=== PATIENT | male | born 1950 | race Caucasian/White ===

== ENCOUNTER 2024-06-09 00:50 | Emergency (ER) | payer OTHER, MEDICARE ==
--- OUTSIDE RECORDS SUMMARY | 2024-06-09 00:54 | XMS REPORT | Continuity of Care Document ---
Author Name Unknown Address [address] [place] [address] [facility] Address 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 Name Role Phone Filippo Reaves Primary Care Physician Filippo Reaves Attending Clinician Unavailable Doctor Unassigned, [place] Attending Clinician U FORD Duff Attending Clinician Unavailable Hernan Green PT Attending Clinician Ford Bryan MD Attending Clinician KRISTY SHAH Attending Clinician UnavailKristy Dowd DNP Attending Clinician Chris De Guzman MD Attending Clinician [phone] CHRIS DE GUZMAN Attending Clinician Unavailab wolf Payers Payer Name Policy Type Policy Number Effective Date Expira tion Date Source AAR Medicare Supplemental 53 [id number] [facility] [place] 1 [id number] [facility] Problems Condition Name Condition Details Condition Category Status Onset Date Resolution Date Last Treatment Date Treating Clinician Comments Source Kidney stone Kidney stones Problem [facility] Macrocytos is Macrocytos is Problem [facility] Essential hypertensi on Essential (primary) hypertensi on Problem [facility] Diabetes mellitus without complicati on Other specified diabetes mellitus without complicati ons Problem [facility] Polyp of colon Polyp of colon Problem [facility] Hyperlipid emia Hyperlipid emia, unspecifie d Problem [facility] Type II diabetes mellitus without complicati on DM II without complicati ons Problem [facility] Chronic kidney disease stage 3 (disorder) Chronic kidney disease, stage 3 (moderate) Problem [facility] Eosinophil count above reference range (finding) Eosinophil ia, unspecifie d Problem [facility] Seasonal allergic rhinitis Allergic rhinitis, seasonal Problem [facility] Gastroesop hageal reflux disease GERD (gastroeso phageal reflux disease) Problem [facility] Diabetes mellitus Diabetes mellitus Problem [facility] Increased blood leukocyte number Other elevated white blood cell count Problem [facility] 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, without long-term current use of insulin, unspecifie d CKD stage [facility] Allergies, Adverse Reactions, Alerts Allergy Name Allergy Type Status Severity Reaction(s) Onset Date Inactive Date Treating Clinician Comments Source Sulfa Dyne Propensi ty to adverse reaction s Active Anxiety 08-12 00:00: 00 [facility] SULFA DYNE DRUG Active Anxiety 08-12 00:00: 00 [facility] Sulfa (Sulfona mide Antibiot ics) DA Active SV 2-13 00:00: 00 [facility] sulfamet hoxazole / trimetho prim sulfamet hoxazole / trimetho prim Active Respiratory arrest [facility] NO KNOWN ALLERGIE S Drug Class Active [facility] Social History Social Habit Start Date Stop Date Quantity Comments Source History of Tobacco Use [facility] Sex Assigned At [facility] Sm[facility] Status Start Date Stop Date Source Tobacco smoking consumption unknown [facility] Former Smoker 2023-12-28 00:00:00 2023-12-28 00:00:00 [facility] Medications Ordered Medication Name Filled Medication Name Start Date Stop Date Current Medication? Ordering Clinician Indication Dosage Frequency Signature (SIG) Comments Components Source cyclobenzap rine 5 mg tablet 08-12 00:00: 00 09-12 04:59 :00 No [id number] 5mg Take 1 tablet by mouth at bedtime as needed for Muscle Spasms for up to 30 days. [facility] Triamcinolo ne per 10 mg - TEVA Triamcinolo ne per 10 mg - TEVA 05-10 00:00: 00 No 40mg [facility] Triamcinolo ne per 10mg (AMNEAL) Triamcinolo ne per 10mg (AMNEAL) 1- 00:00: 00 No 40mg [facility] Toradol per 15mg-Fresen ius Toradol per 15mg-Fresen ius 2017-03 0- 00:00: 00 No 30mg [facility] DepoMedrol 80 mg - Sandoz DepoMedrol 80 mg - Sandoz 2- 00:00: 00 No 80mg [facility] Simvastatin 40 MG Simvastatin 40 MG No Simvastati n 40 MG ZyrTEC 10 MG ZyrTEC 10 MG No 1{tab(s )} QD ZyrTEC 10 MG BD Pen Needle Meghann 2nd Gen 32G X 4 MM BD Pen Needle Meghann 2nd Gen 32G X 4 MM No BD Pen Needle Meghann 2nd Gen 32G X 4 MM Ozempic (1 MG/DOSE) 4 MG/3ML Ozempic (1 MG/DOSE) 4 MG/3ML No Ozempic (1 MG/DOSE) 4 MG/3ML Lisinopril 2.5 mg Lisinopril 2.5 mg No 1{tab(s )} QD Lisinopril 2.5 mg Synjardy XR 12.5-1000 MG Synjardy XR 12.5-1000 MG No 2{tab(s )} QD Synjardy XR 12.5-1000 MG Niacin ER (Antihyperl ipidemic) 500 MG Niacin ER (Antihyperl ipidemic) 500 MG No Niacin ER (Antihyper lipidemic) 500 MG Immunizations Ordered Immunization Name Filled Immunization Name Date Status Comments Source Pfizer bivalent + Pfizer bivalent 2022-03-25 00:00:00 Completed CESAR TS COMSOPHIE TS 2021-08-06 00:00:00 Completed Inlfuenza (split) QV 6 mths and up Inlfuenza (split) QV 6 mths and up Unknown Completed [facility] Influenza (split) pres free 65 & over Influenza (split) pres free 65 & over Unknown Completed [facility] Influenza (split) 3 yrs and older Influenza (split) 3 yrs and older Unknown Completed [facility] Shingrix Shingrix Unknown Completed [facility] COVID-19 PFizer - mRNA COVID-19 PFizer - mRNA Unknown Completed [facility] Prevnar 13 (Pneumococcal conjugate, 13 valent) Prevnar 13 (Pneumococcal conjugate, 13 valent) Unknown Completed [facility] Pneumococcal (Pneumovax 23) Pneumococcal (Pneumovax 23) Unknown Completed [facility] Vital Signs Vital Name Observation Time Observation Value Comments S ource height 2023-12-28 09:15:00 67 [in_i] [facility] weight-kg 2023-12-28 09:15:00 75.48 kg [facility] bmi 2023-12-28 09:15:00 26.06 kg/m2 [facility] temperature 2023-12-28 09:15:00 96.7 [degF] [facility] heart rate 2023-12-28 09:15:00 68 /min [facility] blood pressure systolic 2023-12-28 09:15:00 110 mm[Hg] [facility] blood pressure diastolic 2023-12-28 09:15:00 62 mm[Hg] [facility] height 2023-12-08 11:15:00 67 [in_i] [facility] weight-kg 2023-12-08 11:15:00 73.48 kg [facility] bmi 2023-12-08 11:15:00 25.37 [facility] 2023-12-08 11:15:00 97.3 [degF] [facility] heart rate 2023-12-08 11:15:00 75 /min [facility] blood pressure systolic 2023-12-08 11:15:00 122 mm[Hg] [facility] blood pressure diastolic 2023-12-08 11:15:00 68 mm[Hg] [facility] height 2023-12-01 13:30:00 67 [in_i] [facility] weight-kg 2023-12-01 13:30:00 75.02 kg [facility] bmi 2023-12-01 13:30:00 25.9 kg/m2 [facility] respiratory rate 2023-12-01 13:30:00 16 /min [facility] heart rate 2023-12-01 13:30:00 75 /min [facility] blood pressure systolic 2023-12-01 13:30:00 122 mm[Hg] [facility] blood pressure diastolic 2023-12-01 13:30:00 70 mm[Hg] [facility] Systolic blood pressure 2023-10-13 12:44:00 127 mm[Hg] [facility] Diastolic blood pressure 2023-10-13 12:44:00 60 mm[Hg] [facility] Heart rate 2023-10-13 12:44:00 66 /min Unive [facility] Body temperature 2023-10-13 12:44:00 36.28 Cyndee [facility] Body height 2023-10-13 12:44:00 170.2 cm [facility] Body weight 2023-10-13 12:44:00 79.198 kg [facility] BMI 2023-10-13 12:44:00 27.35 kg/m2 [facility] Systolic blood pressure 2023-08-13 12:49:00 124 mm[Hg] [facility] Diastolic blood pressure 2023-08-13 12:49:00 57 mm[Hg] [facility] Heart rate 2023-08-13 12:49:00 68 /min Unive [facility] Body temperature 2023-08-13 12:49:00 35.67 Cyndee [facility] Body height 2023-08-13 12:49:00 171.5 cm [facility] Body weight 2023-08-13 12:49:00 82.555 kg [facility] BMI 2023-08-13 12:49:00 28.08 kg/m2 [facility] Procedures Procedure Date / Time Performed Performing Clinicia n Source XR LUMBAR SPINE 2 VW 2023-08-13 13:02:44 Chris De Guzman [facility] REFERRAL- REQUEST/RESPONSE 2023-07-15 15:03:27 Doctor Unassigned, [place] [facility] Encounters Start Date/Time End Date/Time Encounter Type Admission Type Attending [facility] Facility Care Department Encounter ID Source 2024-05-09 11:28:01 Outpatient Filippo Reaves [facility] [id number] 2023-12-01 13:22:00 Outpatient Filippo Reaves [facility] [id number] 2023-07-15 00:00:00 2024-05-07 02:13:19 Orders Only Doctor Unassigned, [place] Doctor Unassigned, [place] [facility] 1..840.114 350.1.13.10 4.2.7.2.686 [id number] [facility] 2023-12-30 00:00:00 2023-12-30 00:00:00 (TEL) [facility] [id number] 2023-12-28 00:00:00 2023-12-28 00:00:00 Preventive Care Est Pt. Age 65 and over [facility] [id number] 2023-12-08 00:00:00 2023-12-08 00:00:00 Office Visit- Est Pt.- Level 4 [facility] [id number] 2023-12-01 00:00:00 2023-12-01 00:00:00 Office Visit- Est Pt.- Level 4 [facility] [id number] 2023-11-02 16:00:00 2023-11-02 16:00:00 Outpatient FORD FENG [facility] [id number] [facility] 2023-10-19 16:00:00 2023-10-19 16:59:46 Outpatient FORD FENG [facility] [id number] [facility] 2023-10-19 16:00:00 2023-10-19 16:59:46 Ancillary Visit Hernan Green Brian [facility] 1..840.114 350.1.13.10 4.2.7.2.686 [id number] [facility] 2023-10-13 08:00:00 2023-10-13 08:00:00 Office Visit Mary Kristy [facility] 1.2.840.114 350.1.13.10 4.2.7.2.686 [id number] [facility] 2023-10-13 08:00:00 2023-10-13 07:53:31 Outpatient R MARY KRISTY [facility] [id number] [facility] 2023-10-05 16:00:00 2023-10-05 16:47:49 Ancillary Visit Hernan Green [facility] 1..840.114 350.1.13.10 4.2.7.2.686 [id number] [facility] 2023-09-14 13:00:00 2023-09-14 13:53:01 Outpatient FORD FENG [facility] [id number] [facility] 2023-09-14 13:00:00 2023-09-14 13:53:01 Ancillary Visit Hernan Green [facility] 1.2.840.114 350.1.13.10 4.2.7.2.686 [id number] [facility] 2023-08-13 07:49:52 2023-08-13 23:59:00 Hospital Encounter Katlin [facility] 1.2840.114 350.1.13.10 4.2.7.2.686 [id number] [facility] 2023-08-13 07:45:00 2023-08-13 08:29:24 [facility] [place] [facility] 1.2840.114 350.1.13.10 4.2.7.2.686 [id number] [facility] 2023-08-13 07:45:00 2023-08-13 08:29:24 Outpatient CHRIS GAGNON [facility] [id number] [facility] 2022-03-25 00:00:00 2022-03-25 00:00:00 Outpatient [facility] [id number] [facility] 2021-08-06 00:00:00 2021-08-06 00:00:00 Outpatient [facility] [id number] [facility] Results Test Description Test Time Test Comments Results Result Co mments Source PSA, TOTAL (5363)2023-12-28 00:00:00* Test Item Value Reference Range Interpretation Comme nts HEMOGLOBIN A1c (test code = 88878-1) 5.8 % of total Hgb See_Comment H [Automated message] The system which generated this result transmitted reference range: <5.7 % of total Hgb. The reference range was not used to interpret this result as normal/abnormal. CHOL/HDLC RATIO (test code = 19963463) 3.3 (calc) See_Comment N [Automated message] The system which generated this result transmitted reference range: <5.0 (calc). The reference range was not used to interpret this result as normal/abnormal. CHOLESTEROL, TOTAL (test code = 72013011) 144 mg/dL See_Comment N [Automated message] The system which generated this result transmitted reference range: <200 mg/dL. The reference range was not used to interpret this result as normal/abnormal. HDL CHOLESTEROL (test code = 54688527) 44 mg/dL See_Comment N [Automated message] The system which generated this result transmitted reference range: > OR = 40 mg/dL. The reference range was not used to interpret this result as normal/abnormal. LDL-CHOLESTEROL (test code = 51662-9) 79 mg/dL (calc) N NON HDL CHOLESTEROL (test code = 60107297) 100 mg/dL (calc) See_Comment N [Automated message] The system which generated this result transmitted reference range: <130 mg/dL (calc). The reference range was not used to interpret this result as normal/abnormal. TRIGLYCERIDES (test code = 18720149) 110 mg/dL See_Comment N [Automated message] The system which generated this result transmitted reference range: <150 mg/dL. The reference range was not used to interpret this result as normal/abnormal. ALBUMIN (test code = 24047234) 4.3 g/dL See_Comment N [Automated message] The system which generated this result transmitted reference range: 3.6-5.1 g/dL. The reference range was not used to interpret this result as normal/abnormal. ALBUMIN/GLOBULIN RATIO (test code = 53819123) 1.8 (calc) See_Comment N [Automated message] The system which generated this result transmitted reference range: 1.0-2.5 (calc). The reference range was not used to interpret this result as normal/abnormal. ALKALINE PHOSPHATASE (test code = 79676049) 57 U/L See_Comment N [Automated message] The system which generated this result transmitted reference range: 35-144 U/L. The reference range was not used to interpret this result as normal/abnormal. ALT (test code = 32937744) 15 U/L See_Comment N [Automated message] The system which generated this result transmitted reference range: 9-46 U/L. The reference range was not used to interpret this result as normal/abnormal. AST (test code = 74676680) 20 U/L See_Comment N [Automated message] The system which generated this result transmitted reference range: 10-35 U/L. The reference range was not used to interpret this result as normal/abnormal. BILIRUBIN, TOTAL (test code = 35679762) 0.5 mg/dL See_Comment N [Automated message] The system which generated this result transmitted reference range: 0.2-1.2 mg/dL. The reference range was not used to interpret this result as normal/abnormal. BUN/CREATININE RATIO (test code = 07781045) SEE NOTE: (calc) See_Comment [Automated message] The system which generated this result transmitted reference range: 6-22 (calc). The reference range was not used to interpret this result as normal/abnormal. CALCIUM (test code = 05559117) 9.8 mg/dL See_Comment N [Automated message] The system which generated this result transmitted reference range: 8.6-10.3 mg/dL. The reference range was not used to interpret this result as normal/abnormal. CARBON DIOXIDE (test code = 87148415) 21 mmol/L See_Comment N [Automated message] The system which generated this result transmitted reference range: 20-32 mmol/L. The reference range was not used to interpret this result as normal/abnormal. CHLORIDE (test code = 51110507) 105 mmol/L See_Comment N [Automated message] The system which generated this result transmitted reference range: 98-110 mmol/L. The reference range was not used to interpret this result as normal/abnormal. CREATININE (test code = 04885720) 1.15 mg/dL See_Comment N [Automated message] The system which generated this result transmitted reference range: 0.70-1.28 mg/dL. The reference range was not used to interpret this result as normal/abnormal. GLOBULIN (test code = 02784375) 2.4 g/dL (calc) See_Comment N [Automated message] The system which generated this result transmitted reference range: 1.9-3.7 g/dL (calc). The reference range was not used to interpret this result as normal/abnormal. GLUCOSE (test code = 37710403) 95 mg/dL See_Comment N [Automated message] The system which generated this result transmitted reference range: 65-99 mg/dL. The reference range was not used to interpret this result as normal/abnormal. POTASSIUM (test code = 30016503) 4.3 mmol/L See_Comment N [Automated message] The system which generated this result transmitted reference range: 3.5-5.3 mmol/L. The reference range was not used to interpret this result as normal/abnormal. PROTEIN, TOTAL (test code = 84114379) 6.7 g/dL See_Comment N [Automated message] The system which generated this result transmitted reference range: 6.1-8.1 g/dL. The reference range was not used to interpret this result as normal/abnormal. SODIUM (test code = 28442512) 140 mmol/L See_Comment N [Automated message] The system which generated this result transmitted reference range: 135-146 mmol/L. The reference range was not used to interpret this result as normal/abnormal. UREA NITROGEN (BUN) (test code = 38959448) 21 mg/dL See_Comment N [Automated message] The system which generated this result transmitted reference range: 7-25 mg/dL. The reference range was not used to interpret this result as normal/abnormal. ABSOLUTE BASOPHILS (test code = 66081793) 53 cells/uL See_Comment N [Automated message] The system which generated this result transmitted reference range: 0-200 cells/uL. The reference range was not used to interpret this result as normal/abnormal. ABSOLUTE EOSINOPHILS (test code = 02834905) 836 cells/uL See_Comment H [Automated message] The system which generated this result transmitted reference range: 15-500 cells/uL. The reference range was not used to interpret this result as normal/abnormal. ABSOLUTE LYMPHOCYTES (test code = 72903409) 1918 cells/uL See_Comment N [Automated message] The system which generated this result transmitted reference range: 850-3900 cells/uL. The reference range was not used to interpret this result as normal/abnormal. ABSOLUTE MONOCYTES (test code = 89133330) 854 cells/uL See_Comment N [Automated message] The system which generated this result transmitted reference range: 200-950 cells/uL. The reference range was not used to interpret this result as normal/abnormal. ABSOLUTE NEUTROPHILS (test code = 51166030) 5139 cells/uL See_Comment N [Automated message] The system which generated this result transmitted reference range: 7982-6158 cells/uL. The reference range was not used to interpret this result as normal/abnormal. BASOPHILS (test code = 44847975) 0.6 % N EOSINOPHILS (test code = 06344739) 9.5 % N HEMATOCRIT (test code = 76126132) 44.9 % See_Comment N [Automated message] The system which generated this result transmitted reference range: 38.5-50.0 %. The reference range was not used to interpret this result as normal/abnormal. HEMOGLOBIN (test code = 88559414) 14.4 g/dL See_Comment N [Automated message] The system which generated this result transmitted reference range: 13.2-17.1 g/dL. The reference range was not used to interpret this result as normal/abnormal. LYMPHOCYTES (test code = 53222745) 21.8 % N MCH (test code = 03972584) 32.4 pg See_Comment N [Automated message] The system which generated this result transmitted reference range: 27.0-33.0 pg. The reference range was not used to interpret this result as normal/abnormal. MCHC (test code = 24369271) 32.1 g/dL See_Comment N [Automated message] The system which generated this result transmitted reference range: 32.0-36.0 g/dL. The reference range was not used to interpret this result as normal/abnormal. MCV (test code = 66657670) 101.1 fL See_Comment H [Automated message] The system which generated this result transmitted reference range: 80.0-100.0 fL. The reference range was not used to interpret this result as normal/abnormal. MONOCYTES (test code = 23645882) 9.7 % N MPV (test code = 42411771) 10.3 fL See_Comment N [Automated message] The system which generated this result transmitted reference range: 7.5-12.5 fL. The reference range was not used to interpret this result as normal/abnormal. NEUTROPHILS (test code = 57379236) 58.4 % N PLATELET COUNT (test code = 11038380) 161 Thousand/uL See_Comment N [Automated message] The system which generated this result transmitted reference range: 140-400 Thousand/uL. The reference range was not used to interpret this result as normal/abnormal. RDW (test code = 04621254) 12.5 % See_Comment N [Automated message] The system which generated this result transmitted reference range: 11.0-15.0 %. The reference range was not used to interpret this result as normal/abnormal. RED BLOOD CELL COUNT (test code = 46911901) 4.44 Million/uL See_Comment N [Automated message] The system which generated this result transmitted reference range: 4.20-5.80 Million/uL. The reference range was not used to interpret this result as normal/abnormal. WHITE BLOOD CELL COUNT (test code = 99626352) 8.8 Thousand/uL See_Comment N [Automated message] The system which generated this result transmitted reference range: 3.8-10.8 Thousand/uL. The reference range was not used to interpret this result as normal/abnormal. APPEARANCE (test code = 79103568) CLEAR CLEAR N BACTERIA (test code = 60748058) NONE SEEN /HPF NONE SEEN /HPF N BILIRUBIN (test code = 03272782) NEGATIVE NEGATIVE N COLOR (test code = 55296944) YELLOW YELLOW N GLUCOSE (test code = 59354698) 3+ NEGATIVE A HYALINE CAST (test code = 44727498) NONE SEEN /LPF NONE SEEN /LPF N KETONES (test code = 04884847) NEGATIVE NEGATIVE N LEUKOCYTE ESTERASE (test code = 65238010) NEGATIVE NEGATIVE N NITRITE (test code = 26042317) NEGATIVE NEGATIVE N NOTE (test code = 18625409) OCCULT BLOOD (test code = 75365274) NEGATIVE NEGATIVE N PH (test code = 30332920) < OR = 5.0 5.0-8.0 N PROTEIN (test code = 54602890) NEGATIVE NEGATIVE N RBC (test code = 27891380) NONE SEEN /HPF See_Comment N [Automated message] The system which generated this result transmitted reference range: < OR = 2 /HPF. The reference range was not used to interpret this result as normal/abnormal. SPECIFIC GRAVITY (test code = 20081457) 1.036 1.001-1.035 H SQUAMOUS EPITHELIAL CELLS (test code = 59061554) NONE SEEN /HPF See_Comment N [Automated message] The system which generated this result transmitted reference range: < OR = 5 /HPF. The reference range was not used to interpret this result as normal/abnormal. WBC (test code = 98701780) NONE SEEN /HPF See_Comment N [Automated message] The system which generated this result transmitted reference range: < OR = 5 /HPF. The reference range was not used to interpret this result as normal/abnormal. TSH (test code = 03394137) 2.17 mIU/L See_Comment N [Automated message] The system which generated this result transmitted reference range: 0.40-4.50 mIU/L. The reference range was not used to interpret this result as normal/abnormal. CREATININE, RANDOM URINE (test code = 40917726) 91 mg/dL See_Comment N [Automated message] The system which generated this result transmitted reference range: 20-320 mg/dL. The reference range was not used to interpret this result as normal/abnormal. ALBUMIN, URINE (test code = 44953905) 0.2 mg/dL See Note: mg/dL N ALBUMIN/CREATININE RATIO, RANDOM URINE (test code = 24021183) 2 mg/g creat See_Comment N [Automated message] The system which generated this result transmitted reference range: <30 mg/g creat. The reference range was not used to interpret this result as normal/abnormal. PSA, TOTAL (test code = 41852310) 1.35 ng/mL See_Comment N [Automated message] The system which generated this result transmitted reference range: < OR = 4.00 ng/mL. The reference range was not used to interpret this result as normal/abnormal. XR LUMBAR SPINE 2 [id number] 16:32:29XR LUMBAR SPINE 2 VW HISTORY: Male 73 years back pain COMPARISON: None FINDINGS: The vertebral bodies are in normal alignment. The vertebral body heightsare normal. Meqw-ij-lmhyntie degenerative changes are seen. A punctate density in the region of the right renal hilum could represent arenal stoneversus vascular calcification.[facility]- REQUEST/[id number] 15:03:27Ordered by an unspecified provider.[facility]- XR ABDOMEN 1V (KUB) 2018-05-05 22:19:00FAX: Alejandra Rosario DO [phone] [place]: St: REG FAX: Filippo Irby MD [phone] ---- Name: FRANCESCO SALAZAR [facility] : 1950 Age/S: 67/M [address] [place] [address] Unit #: [id number] Loc: [place] [address] Phys: Alejandra Dias DO Acct: [id number] Dis Date: Status: REG ER PHONE #: Exam Date: 05/05/20182139 FAX #: [phone] Reason: Abdominal Pain EXAMS: CPT CODE: [id number] XR ABDOMEN 1V (KUB) 14835 PROCEDURE: - XR ABDOMEN 1V (KUB) INDICATION: 67 years Male, Abdominal Pain. COMPARISON: Abdominal CT of the same day FINDINGS: Supine view the abdomen on 2 images. Intestinal gas pattern is within normal limits. Moderate volume stool burden. No pathologic calcifications, organomegaly or abnormal soft tissue masses. Bony structures are unremarkable. IMPRESSION: Negative abdomen. SL: SONU at 2219 Reported and signed by: Zaheer Watson M.D. CC: Alejandra Dias DO; Filippo Reaves MD Technologist: Mal Saldivar Trnscrd Date/Time/By: 05/05/2018 (2218) : By: [email or web address] Orig Print D/T: S: 05/05/2018 (1476) PAGE 1 Signed Report- CT ABD PELVIS W/O [id number] 20:59:00Name: FRANCESCO SALAZAR [facility] : 1950 Age/S: 67 / M [address] [place] [address] Unit #: [id number] Loc: [place] [address] Phys: JjsonyGodfreyAlejandra DO Acct: [id number] Dis Date: Status: REG ER PHONE #: [phone] Exam Date: 05/05/20182034 FAX #: [phone] Reason: ABDOMINAL PAIN/ URINARY RETENTION EXAMS: CPT CODE: [id number] CT ABD PELVIS W/O CONT 36307 PROCEDURE: CT ABDOMEN AND PELVIS WITHOUT CONTRAST INDICATION: 67 years Male, ABDOMINAL PAIN/ URINARY RETENTION. COMPARISON: None. TECHNIQUE: Helical imaging performed diaphragm through the symphysis. Axial, sagittal and coronal reformations are available. IV contrast: None. Oral contrast: None. Rectal contrast: None. DOSE: CT imaging performed at this location utilizes radiation dose optimization technique which includes one or more of the followin) Automated exposure control; 2) Adjustment of the mA and/or kV according to patient's size; 3) Use of iterative reconstruction techniques. DLP (mGy-cm): 550 FINDINGS: LOWER CHEST: Lingular calcified granuloma. SOLID ORGANS: Calcified hepatic and splenic granulomas. Pa ncreas appears normal. Bilateral adrenal glands and kidneys are within normal limits without intrarenal stones or hydronephrosis. No gallstones. No biliary ductal dilatation. BOWEL: No bowel dilatation or bowel wall thickening. Sigmoid colon is unremarkable. Perirectal fat planes are within normal limits. Normal appearing appendix identified within right lower quadrant. PERITONEUM: No free intraperitoneal air or fluid. No stranding of the central mesentery. No peritoneal adenopathy by size criteria. RETROPERITONEUM: Abdominal aorta is normal caliber. No retroperitoneal adenopathy by size criteria. PELVIS: No pelvic mass. No pelvic free fluid. Urinary bladder is collapsed around a Rincon catheter balloon. No pelvic adenopathy by size criteria. MUSCULOSKELETAL: No acute osseous abnormalitiesor destructive bony lesions. Vertebral body height are maintained. OTHER: None. PAGE 1 Signed Report (CONTINUED) Name: FRANCESCO SALAZAR [facility] : 1950 Age/S: 67 / M [address] [place] [address] Blvd Unit #: [id number] Loc: [place] [address] Phys: ArunNickAlejandra DO Acct: [id number] Dis Date: Status: REG ER PHONE #: [phone] Exam Date: 05/05/20182034 FAX #: [phone] Reason: ABDOMINAL PAIN/ URINARY RETENTION EXAMS: CPT CODE: [id number] CT ABD PELVIS W/O CONT 60029 (Continued) IMPRESSION: No acute intra- abdominal or intrapelvic findings. SL: SONU at 2058 Reported and signed by: Zaheer Watson M.D. CC: Alejandra Dias DO; Filippo Reaves MD Technologist:RT Vlad(R) CTDI: DLP: Trnscb Date/Time: 05/05/2018 (2058) [email or web address] Orig Print D/T: S: 05/05/2018 (2101) CTDI: DLP: PAGE 2 Signed ReportCOMPREHENSIVE METABOLIC PANEL 2018-05-05 20:46:00* Test Item Value Reference Range Interpretation Comme nts SODIUM (test code = NA) 137 mEq/L 134-147 N POTASSIUM (test code = K) 4.0 mEq/L 3.4-5.0 N CHLORIDE (test code = CL) 105 mEq/L 100-108 N CARBON DIOXIDE (test code = CO2) 24 mEq/L 21-33 N ANION GAP (test code = GAP) 12 0-20 N GLUCOSE (test code = GLU) 125 mg/dL 70-110 H BLOOD UREA NITROGEN (test code = BUN) 23 mg/dL 7-18 H GLOMERULAR FILTRATION RATE (test code = GFR) 55.4 80-90 L Units of measure = ml/min/1.73 m2 CREATININE (test code = CREAT) 1.3 mg/dL 0.6-1.3 N TOTAL PROTEIN (test code = PROT) 7.7 g/dL 6.4-8.2 N ALBUMIN (test code = ALB) 3.80 g/dL 3.4-5.0 N CALCIUM (test code = CA) 9.2 mg/dL 8.0-10.5 N BILIRUBIN TOTAL (test code = BILT) 0.40 mg/dL 0.0-1.0 N SGOT/AST (test code = AST) 19 IUnit/L 15-37 N SGPT/ALT (test code = ALT) 30 IUnit/L 15-65 N ALKALINE PHOSPHATASE TOTAL (test code = ALKP) 73 IUnit/L 20-125 N COMPREHENSIVE METABOLIC [id number] 20:44:00* Test Item Value Reference Range Interpretation Comme nts SODIUM (test code = NA) 137 mEq/L 134-147 N POTASSIUM (test code = K) 4.0 mEq/L 3.4-5.0 N CHLORIDE (test code = CL) 105 mEq/L 100-108 N CARBON DIOXIDE (test code = CO2) 24 mEq/L 21-33 N ANION GAP (test code = GAP) 12 0-20 N GLUCOSE (test code = GLU) 125 mg/dL 70-110 H BLOOD UREA NITROGEN (test code = BUN) 23 mg/dL 7-18 H GLOMERULAR FILTRATION RATE (test code = GFR) 55.4 80-90 L Units of measure = ml/min/1.73 m2 CREATININE (test code = CREAT) 1.3 mg/dL 0.6-1.3 N TOTAL PROTEIN (test code = PROT) g/dL 6.4-8.2 ALBUMIN (test code = ALB) 3.80 g/dL 3.4-5.0 N CALCIUM (test code = CA) 9.2 mg/dL 8.0-10.5 N BILIRUBIN TOTAL (test code = BILT) mg/dL 0.0-1.0 SGOT/AST (test code = AST) 19 IUnit/L 15-37 N SGPT/ALT (test code = ALT) 30 IUnit/L 15-65 N ALKALINE PHOSPHATASE TOTAL (test code = ALKP) IUnit/L 20-125 URINALYSIS [id number] 20:34:00* Test Item Value Reference Range Interpretation Comme nts UA COLOR (test code = COLU) YELLOW YEL/STRAW UA APPEARANCE (test code = APPU) CLEAR CLEAR UA GLUCOSE DIPSTICK (test co de = DGLUU) 3+ NEGATIVE A UA BILIRUBIN DIPSTICK (test code = BILU) NEGATIVE NEGATIVE UA KETONE DIPSTICK (test cod e = KETU) NEGATIVE NEGATIVE UA SPECIFIC GRAVITY (test co de = SGU) 1.025 1.005-1.030 N UA BLOOD DIPSTICK (test code = CHRISTOPHER) NEGATIVE NEGATIVE UA PH DIPSTICK (test code = RAFAEL) 5.0 5.0-7.0 N UA PROTEIN DIPSTICK (test co de = PROU) NEGATIVE NEGATIVE UA UROBILINIOGEN DIPSTICK (test code = URO) 0.2 mg/dL 0.2-1.0 UA NITRITE DIPSTICK (test co de = BULMARO) NEGATIVE NEGATIVE UA LEUKOCYTE ESTERASE DIPSTI CK (test code = LEUU) NEGATIVE NEGATIVE UA WBC (test code = WBCU) 0-3 WBC/HPF 0-3 UA RBC (test code = RBCU) 0-3 RBC/HPF 0-3 UA BACTERIA (test code = BACU) NONE SEEN /HPF NONE SEEN UA SQUAMOUS CELLS (test code = SQU) NONE SEEN /HPF NONE SEEN COMMENTS: Clean CatchCBC W/AUTO [id number] 20:29:00* Test Item Value Reference Range Interpretation Comme nts WHITE BLOOD CELL (test code = WBC) 16.57 x10 3/uL 4.5-11.0 H RED BLOOD CELL (test code = RBC) 4.68 x10 6/uL 4.00-5.60 N HEMOGLOBIN (test code = HGB) 15.0 g/dL 12.5-16.9 N HEMATOCRIT (test code = HCT) 46.5 % 37.5-50.7 N MEAN CELL VOLUME (test code = MCV) 99.4 fL 81.0-99.0 H MEAN CELL HGB (test code = MCH) 32.1 pg 27.0-33.0 N MEAN CELL HGB CONCETRATION (test code = MCHC) 32.3 g/dL 33.0-37.0 L RED CELL DISTRIBUTION WIDTH CV (test code = RDW) 12.6 % 11.5-14.5 N RED CELL DISTRIBUTION WIDTH SD (test code = RDW-SD) 46.2 fL 37.0-54.0 N PLATELET COUNT (test code = PLT) 286 x10 3/uL 150-400 N MEAN PLATELET VOLUME (test code = MPV) 9.0 fL 7.0-9.0 N NEUTROPHIL % (test code = NT%) 77.1 % 56.0-77.0 H IMMATURE GRANULOCYTE % (test code = IG%) 0.3 % 0.0-2.0 N LYMPHOCYTE % (test code = LY%) 11.3 % 14.0-32.0 L MONOCYTE % (test code = MO%) 7.5 % 4.8-9.0 N EOSINOPHIL % (test code = EO%) 3.3 % 0.3-3.7 N BASOPHIL % (test code = BA%) 0.5 % 0.0-2.0 N NUCLEATED RBC % (test code = NRBC%) 0.0 % 0-0 N NEUTROPHIL # (test code = NT#) 12.77 x10 3/uL 2.0-7.6 H IMMATURE GRANULOCYTE # (test code = IG#) 0.05 x10 3/uL 0.00-0.03 H LYMPHOCYTE # (test code = LY#) 1.87 x10 3/uL 1.0-3.8 N MONOCYTE # (test code = MO#) 1.25 x10 3/uL 0.1-0.8 H EOSINOPHIL # (test code = EO#) 0.54 x10 3/uL 0.0-0.2 H BASOPHIL # (test code = BA#) 0.09 x10 3/uL 0.0-0.2 N NUCLEATED RBC # (test code = NRBC#) 0.00 x10 3/uL 0.0-0.1 N MANUAL DIFF REQUIRED (test code = MDIFF) NO KARINA: Bilaterial Lower ExtremitiesABI: Bilaterial Lower Extremities Notes Date/Time Note Provider Source 2023-08-13 07:45:00 Addended by: CHRIS DE GUZMAN MD on: 08/17/2023 10:59 AM Modules accepted: Level of Service [facility] 2018-05-05 19:49:00 [facility] ([facility]) EMERGENCY PROVIDER REPORT REPORT#:[id number] REPORT STATUS: Signed DATE:05/05/18 TIME: 1948 PATIENT: FRANCESCO SALAZAR UNIT #: [id number] ROOM/BED: AGE: 67 SEX: M PCP PHYS: Filippo Reaves MD SERVICE AUTHOR: Alejandra Dias DO * ALL edits or amendments must be made on the electronic/computer document * Alejandra Dias 05/05/181948: HPI-Constipation General Confirmed Patient Yes Initial Greet Date/Time 05/05/181945 Presentation Chief Complaint Constipation Hx Obtained From Patient Sudden in Onset? Yes Onset Occurred Days ago (2) Symptom Duration Since onset Associated with Reports: Bleeding. Free Text HPI Notes Free Text HPI Notes 67 yo M presents to ED c/o constipation onset 2 days ago. Pt reports last BM was almost 3 days ago w/ assoc minimal bleeding. He took miralax at 1830 today w/ no relief. Today at 1600 he noticed difficulty urinating as well. Pt also has lower abdominal pressure but denies any other sxs. Portions of this section were scribed by Zeinab Vieyra on 05/05/18 at 205 Review of Systems ROS Statements All systems rev neg except as marked. Focused Review of Systems GI Reports: Abdominal pain, Constipation. Additional Review of Systems Male Reports: Urination decreased. Portions of this section were scribed by Zeinab Vieyra on 05/05/18 at 1949 Past Medical History - Adult Stated Complaint LAST TIME URINATING [id number] Allergies Coded Allergies: Sulfa (Sulfonamide Antibiotics) (Severe, RESP ARREST 05/05/18) Pt reports no significant: Past medical history, Past surgical history Smoking status for patients 13 years old or older: Never Smoker Portions of this section were scribed by Zeinab Vieyra on 05/05/18 at 194 Physical Exam Vital Signs Vital Signs Review of Vital Signs Reviewed Focused PE General/Const General/Const Awake, Alert, No acute distress, Cooperative, Not toxic appearing Resp/Chest Respiratory/Chest Breath sounds NL, No respiratory distress, No rales, No rhonchi, No wheezing Cardiovascular Cardiovascular Heart rate NL, Regular rhythm, Heart sounds NL Abdomen/GI Abdomen/GI Soft, No guarding, No rebound, No distention Tenderness/Guarding/Rebound Tender suprapubic. Rectum Rectum/Perineum Exam deferred Neurologic Neurologic Oriented X3, Speech NL Additional PE MS Head Head Normocephalic Eyes Eyes EOMI, Conjunctiva NL Ears/Nose/Throat Ears/Nose/Throat Airway patent, Mucous membranes moist MS Neck Neck Supple, Full range of motion MS Lower Extrem Lower Ext/Pelvis/MS No swelling, Non-tender Skin Skin Color NL, Warm, Dry, Intact Portions of this section were scribed by Zeinab Vieyra on 05/05/18 at 2058 Interpretation Diagnostics Lab Results Interpretation Results Point of Care Testing Pulse Oximetry Pulse Ox % 98 On: Room air Interpretation Interpreted by me, Pulse oximetry normal Time 1943 ECG #1 Interpretation Text/Dict Note sinus rhythm w/ premature atrial complexes Date 05/05/18 Time 2019 Interpreted by ED physician NL ECG Interpretation No STEMI, Normal axis, Normal intervals Rate 87 Free Text I D Notes Free Text I D Notes Bedside Bladder scan shows 299ml of urine in bladder. Will place rincon. Portions of this section were scribed by Zeinab Vieyra on 05/05/18 at 2058 Re-Evaluation MDM ED Course Medication(s) Ordered Medication(s) Ordered: Electrolytic, Caloric, And Bernardino Sig/Diego Start time Last Medication Dose Route Stop Time Status Admin Sodium Chloride 0 ASDIR PRN 05/05 1999 AC IV 05/06 1856 Portions of this section were scribed by Zeinab Vieyra on 05/05/18 at 2058 Patient Discharge Departure Vital Signs/Condition Vital Signs Supervising Physician Note MidLv/Doc Saw Pt 1 I have seen and evaluated this patient and agree with the nurse practitioner or physician volunteer assistant's documentation and assessment. Documentation of one or more elements of my assessment are included in the medical record. Scribe Statement Zeinab Vieyra, 05/05/181948, scribing for and in the presence of [ ]. Signed By: Zeinab Vieyra, 05/05/181948 Provider Scribed Statement I personally performed the services described in this documentation and reviewed the documentation that was dictated to the scribe(s) in my presence, and it accurately records my words and actions. Nick Diased, 05/07/18 Portions of this section were scribed by Zeinab Vieyra on 05/05/18 at 2059 Portions of this section were scribed by Jair Nash on 05/05/18 at 2307 Jens Schroeder 05/05/18 2105: Physical Exam Vital Signs Vital Signs First Documented: Result Date Time Pulse Ox 98 05/05 1943 B/P 172/73 05/05 194 B/P Mean 106 05/05 1943 O2 Delivery Room air 05/05 1943 Temp 36.8 05/05 1943 Pulse 92 05/05 1943 Resp 16 05/05 1943 Last Documented: Result Date Time Pulse Ox 98 05/05 1943 B/P 172/73 05/05 194 B/P Mean 106 05/05 1943 O2 Delivery Room air 05/05 1943 Temp 36.8 05/05 1943 Pulse 92 05/05 1943 Resp 16 05/05 1943 Portions of this section were scribed by Jair Nash on 05/05/18 at 2105 Interpretation Diagnostics Lab Results Interpretation Results Laboratory Tests 05/05/18 2017: [Embedded Image Not Available] Laboratory Tests: 05/05 2016 Chemistry Sodium (134 - 147 mEq/L) 137 Potassium (3.4 - 5.0 mEq/L) 4.0 Chloride (100 - 108 mEq/L) 105 Carbon Dioxide (21 - 33 mEq/L) 24 Anion Gap (0 - 20) 12 BUN (7 - 18 mg/dL) 23 H Creatinine (0.6 - 1.3 mg/dL) 1.3 Glomerular Filtr Rate (80 - 90) 55.4 L Glucose (70 - 110 mg/dL) 125 H Calcium (8.0 - 10.5 mg/dL) 9.2 Total Bilirubin (0.0 - 1.0 mg/dL) 0.40 AST (15 - 37 IUnit/L) 19 ALT (15 - 65 IUnit/L) 30 Total Alk Phosphatase (20 - 125 IUnit/L) 73 Total Protein (6.4 - 8.2 g/dL) 7.7 Albumin (3.4 - 5.0 g/dL) 3.80 Hematology WBC (4.5 - 11.0 x10 3/uL) 16.57 H RBC (4.00 - 5.60 x10 6/uL) 4.68 Hgb (12.5 - 16.9 g/dL) 15.0 Hct (37.5 - 50.7 %) 46.5 MCV (81.0 - 99.0 fL) 99.4 H MCH (27.0 - 33.0 pg) 32.1 MCHC (33.0 - 37.0 g/dL) 32.3 L RDW (11.5 - 14.5 %) 12.6 Plt Count (150 - 400 x10 3/uL) 286 MPV (7.0 - 9.0 fL) 9.0 Neut % (Auto) (56.0 - 77.0 %) 77.1 H Lymph % (Auto) (14.0 - 32.0 %) 11.3 L [place] % (Auto) (4.8 - 9.0 %) 7.5 Eos % (Auto) (0.3 - 3.7 %) 3.3 Baso % (Auto) (0.0 - 2.0 %) 0.5 Neut # (Auto) (2.0 - 7.6 x10 3/uL) 12.77 H Lymph # (Auto) (1.0 - 3.8 x10 3/uL) 1.87 [place] # (Auto) (0.1 - 0.8 x10 3/uL) 1.25 H Eos # (Auto) (0.0 - 0.2 x10 3/uL) 0.54 H Baso # (Auto) (0.0 - 0.2 x10 3/uL) 0.09 Abs Immat Gran (auto) (0.00 - 0.03 x10 3/uL) 0.05 H Add Manual Diff NO Immature Gran % (0.0 - 2.0 %) 0.3 Nucleated RBC % (0 - 0 %) 0.0 Nucleated RBCs # (Man) (0.0 - 0.1 x10 3/uL) 0.00 Urines Urine Color (YEL/STRAW) YELLOW Urine Appearance (CLEAR) CLEAR Urine pH (5.0 - 7.0) 5.0 Ur Specific [place] (1.005 - 1.030) 1.025 Urine Protein (NEGATIVE) NEGATIVE Urine Glucose (UA) (NEGATIVE) 3+ H Urine Ketones (NEGATIVE) NEGATIVE Urine Blood (NEGATIVE) NEGATIVE Urine Nitrite (NEGATIVE) NEGATIVE Urine Bilirubin (NEGATIVE) NEGATIVE Urine Urobilinogen (0.2 - 1.0 mg/dL) 0.2 Ur Leukocyte Esterase (NEGATIVE) NEGATIVE Urine RBC (0 - 3 RBC/HPF) 0-3 Urine WBC (0 - 3 WBC/HPF) 0-3 Ur Squamous Epith Cells (NONE SEEN /HPF) NONE SEEN Urine Bacteria (NONE SEEN /HPF) NONE SEEN Recent Impressions: CAT SCAN - CT ABD PELVIS W/O CONT 05/05 2034 Report Impression - Status: SIGNED Entered: 05/05/20182101 IMPRESSION: No acute intra-abdominal or intrapelvic findings. SL: SONU Impression By: Patric Watson M.D. RADIOLOGY - XR ABDOMEN 1V (KUB) 05/05 2139 Report Impression - Status: SIGNED Entered: 05/05/20182221 IMPRESSION: Negative abdomen. SL: SONU Impression By: Patric Watson M.D. Lab Imaging Statement Laboratory radiographic studies reviewed and considered in the medical decision-making. Radiography X-Ray Abdomen Text/Dict Note IMPRESSION: Negative abdomen. Interpretation/Wet Read by Interpret - Radiologist Reviewed by ED ASSOCIATE PROFESSOR OF MEDIA ARTS CT Abdomen/Pelvis Study type No contrast Text/Dict Note IMPRESSION: No acute intra-abdominal or intrapelvic findings. Interpretation/Wet Read by Interpret - Radiologist Reviewed by ED ASSOCIATE PROFESSOR OF MEDIA ARTS Portions of this section were scribed by Jair Nash on 05/05/18 at 2307 Re-Evaluation MDM Re-Evaluation/Progress Re-Evaluation/Progress Text/Dict Note Pt has a rincon catheter in place and will leave w/ rincon. Discussed results w/ pt, plan to D/C home and f/u w/ urology and PCP. Provided reasons to return to the ED. Pt agrees w/ plan. Time of Re-Eval 2301 ED Course Medication(s) Ordered Portions of this section were scribed by Jair Nash on 05/05/18 at 2307 Patient Discharge Departure Vital Signs/Condition Vital Signs First Documented: Result Date Time Pulse Ox 98 05/05 1943 B/P 172/73 05/05 1943 B/P Mean 106 05/05 1943 O2 Delivery Room air 05/05 1943 Temp 36.8 05/05 1943 Pulse 92 05/05 1943 Resp 16 05/05 1943 Last Documented: Result Date Time Pulse Ox 98 05/05 1943 B/P 172/73 05/05 1943 B/P Mean 106 05/05 1943 O2 Delivery Room air 05/05 1943 Temp 36.8 05/05 1943 Pulse 92 05/05 1943 Resp 16 05/05 1943 All vital signs available at the time of this entry have been reviewed. Condition Stable Clinical Impression Clinical Impression Primary Impression: Constipation Secondary Impressions: Urinary retention Disposition Decision Discharge )( Discharged to Home Yes )( Time 230 )( Date 05/05/18 Discharge/Care Plan Counseled Regarding Diagnosis, Lab results, Imaging studies, Prescriptions, Need for follow-up, When to return to ED Prescriptions Miralax, Bentyl Prescriptions Reviewed Risks, Benefits, Alternative treatment Supervising Physician Note Scribe Statement Jair Nash, 05/05/182104, scribing for and in the presence of [Jens Schroeder NP]. Signed By: Jair Nash, 05/05/182104 Provider Scribed Statement I personally performed the services described in this documentation and reviewed the documentation that was dictated to the scribe(s) in my presence, and it accurately records my words and actions. Jens Schroeder, 05/07/18 Portions of this section were scribed by Jair Nash on 05/05/18 at 2307 at 0150 at 0202 [facility] #:[id number] END OF REPORT [facility]AC[facility]
[2024-06-09] MEDS ORDERED: KETOROLAC 30 MG/ML INJ ONE (03:05)
[2024-06-09] MEDS ORDERED: ONDANSETRON 4 MG/2 ML VIAL ONE (03:05)
[2024-06-09] MEDS ORDERED: METHOCARBAMOL 1,000 MG/10 ML VIAL ONE (03:05)
[2024-06-09] MEDS ORDERED: MORPHINE 4 MG/ML SYR ONE (03:06)
[2024-06-09] MEDS ORDERED: NA CHLORIDE 0.9% 1,000 ML ONE (03:06)
[2024-06-09] MEDS ORDERED: NA CHLORIDE 0.9% 100 ML ONE (03:06)
[2024-06-09 04:00] LABS: Absolute Basophils 0.1 K/uL (0-0.5); Absolute Eosinophils 0.6 K/uL (0-0.5); Absolute Lymphocytes (CBC) 1.2 K/uL (0.7-4.9); Absolute Monocytes 1.3 K/uL (0.1-1.3); Absolute Neutrophil 9.4 K/uL (1.8-8.0); Basophils % 0.6 % (0-1.3); Eosinophils % 5.1 % (0-4.4); Hematocrit 42.9 % (39.6-49.0); Lymphocytes % 9.3 % (15.3-44.8); MCH 31.7 pg (27.0-35.0); MCHC 32.6 g/dL (32.0-36.0); MCV 97.3 fL (80-100); Platelets 189 thou/uL (152-406); RBC Red Blood Cell Count 4.41 M/uL (4.33-5.43); Red Cell Distribution Width 14.4 % (12.1-15.2)
[2024-06-09 04:07] LABS: Albumin 3.3 g/dL (3.4-5.0); Albumin/Globulin Ratio 0.8 (1.1-1.8); Anion Gap 10.8 mEq/L (5.0-15.0); Bilirubin Total 0.4 mg/dL (0.2-1.0); C-Reactive Protein 55.2 mg/L (<3.00); Globulin 4.1 g/dL (2.3-3.5); Potassium 3.8 mEq/L (3.5-5.1); Protein, Total 7.4 g/dL (6.4-8.2)
--- NOTE | 2024-06-09 06:37 | RAD REPORT ---
CT NECK WITH IV CONTRAST CLINICAL INDICATION: Neck pain COMPARISON: None TECHNIQUE: CT images of the neck were obtained following adminstration of intravenous contrast. Multi planar reformats were provided. Dose lowering techniques such as automated exposure control, iterative reconstruction, and mA and/or kV adjustment for patient size was utilized for this examinat ion. FINDINGS: SOFT TISSUES: Unremarkable. LYMPH NODES: No pathologic lymphadenopathy. AERODIGESTIVE TRACT: Patent. THYROID/SALIVARY GLANDS: Unremarkable. PARANASAL SINUSES: Well aerated. Mild mucosal thickening at inferior left maxillary sinus. MASTOIDS: Clear. VESSELS: Unremarkable. BONES: No acute bony abnormality. No suspicious sclerotic or lytic bone lesion. Multilevel degenerati ve changes spine. 2 mm anterolisthesis of C5 on C6, likely degenerative. VISUALIZED BRAIN/ORBITS: Unremarkable. LUNG APICES: Clear. OTHER: None. IMPRESSION: No acute findings in CT neck. Electronically signed by: Kizzy Overton MD 06/09/2024 06:28 AM CDT RP Due to temporary technical issues with the PACS/NORCAT reporting system, reports are being merritt d by the in-house radiologist without review as a courtesy to ensure prompt reporting the interpreting radiologist is fully responsible for the content of the report. Transcribed Date/Time: 06/09/2024 6:37 AM
--- NOTE | 2024-06-09 06:43 | EDPHYS ---
Physician Documentation [facility] Name: Jadiel Pedraza Age: 73 yrs Sex: Male : 1950 Arrival Date: 06/09/2024 Time: 00:50 Bed 3 Private MD: ED Physician Horacio Wilhelm HPI: 06/09 01:38 This 73 yrs old Male presents to ER via Ambulatory with complaints of Stiff sp4 Neck, Neck Pain, >24Hrs Old. 01:38 Stiff neck for the past 3 days, pain on the right side of the neck radiating down the sp4 right shoulder.. Historical: - Allergies: 01:00 Bactrim; vc1 - PMHx: 01:00 Diabetes mellitus; Hypercholesterolemia; COLLAPSED L5; COMPRESSED L4; vc1 - PSHx: 01:00 None; vc1 - Immunization history:: Adult Immunizations up to date, Flu vaccine is up to date. - Infectious Disease History:: Denies. - Social history:: Smoking status: Patient denies any tobacco usage or history of. - Family history:: not pertinent. ROS: 06/10 02:09 Constitutional: Negative for fever, chills, and weight loss, positive right-sided neck sp4 pain and positive neck stiffness acute onset All other systems are negative, Exam: 02:09 Constitutional: This is a well developed, well nourished patient who is awake, alert, sp4 and in no acute distress. Head/Face: Normocephalic, atraumatic. Eyes: Pupils equal round and reactive to light, extra-ocular motions intact. Lids and lashes normal. Conjunctiva and sclera are not injected. Cornea within normal limits. Periorbital areas with no swelling, redness, or edema. ENT: Nares patent. No nasal discharge, no septal abnormalities noted. Tympanic membranes are normal and external auditory canals are clear. Oropharynx with no redness, swelling, or masses, exudates, or evidence of obstruction, uvula midline. Mucous membranes moist. Neck: Trachea midline, no thyromegaly or masses palpated, and no cervical lymphadenopathy. Supple, full range of motion without nuchal rigidity, or vertebral point tenderness. Chest/axilla: Normal chest wall appearance and motion. Nontender with no deformity. No lesions are appreciated. Cardiovascular: Regular rate and rhythm with a normal S1 and S2. No gallops, murmurs, or rubs. Normal PMI, no JVD. No pulse deficits. Respiratory: Lungs have equal breath sounds bilaterally, clear to auscultation and percussion. No rales, rhonchi or wheezes noted. No increased work of breathing, no retractions or nasal flaring. Abdomen/GI: Soft, with normal bowel sounds. No distension or tympany. No guarding or rebound. No evidence of tenderness throughout. Back: No spinal tenderness. No costovertebral tenderness. Skin: Warm, dry with normal turgor. Normal color with no rashes, no lesions, and no evidence of cellulitis. MS/ Extremity: Pulses equal, no cyanosis. Neurovascular intact. Full, normal range of motion. Neuro: Awake and alert, GCS 15, oriented to person, place, time, and situation. Cranial nerves II-XII grossly intact. Motor strength 5/5 in all extremities. Sensory grossly intact. Psych: Awake, alert, with orientation to person, place and time. Behavior, mood, and affect are within normal limits Vital Signs: 06/09 01:00 BP 144 / 69; Pulse 85; Resp 16; Temp 98.1; Pulse Ox 99% ; Weight 75.75 kg; Height 5 ft. vc1 7 in. ; Pain 10/10; 03:30 BP 132 / 63; Pulse 75; Resp 16; Pulse Ox 95% on R/A; dd2 04:15 BP 125 / 60; Pulse 70; Resp 16; Pulse Ox 96% on R/A; dd2 06:09 BP 114 / 57; Pulse 66; Resp 18; Pulse Ox 95% on R/A; kd3 01:00 Body Mass Index 26.16 (75.75 kg, 170.18 cm) vc1 01:00 Pain Scale: Adult vc1 [place] Coma Score: 02:45 Eye Response: spontaneous(4). Motor Response: obeys commands(6). Verbal Response: dd2 oriented(5). Total: 15. 06/10 02:09 Eye Response: spontaneous(4). Motor Response: obeys commands(6). Verbal Response: sp4 oriented(5). Total: 15. MDM: 06/09 01:22 Medical Screening Exam initiated sp4 06:33 ED course: CT NECK WITH IV CONTRAST CLINICAL INDICATION: Neck pain COMPARISON: None sp4 TECHNIQUE: CT images of the neck were obtained following adminstration of intravenous contrast. Multiplanar reformats were provided. Dose lowering techniques such as automated exposure control, iterative reconstruction, and mA and/or kV adjustment for patient size was utilized for this examination. FINDINGS: SOFT TISSUES: Unremarkable. LYMPH NODES: No pathologic lymphadenopathy. AERODIGESTIVE TRACT: Patent. THYROID/SALIVARYGLANDS: Unremarkable. PARANASAL SINUSES: Well aerated. Mild mucosal thickening at inferior left maxillary sinus. MASTOIDS: Clear. VESSELS: Unremarkable. BONES: No acute bony abnormality. No suspicious sclerotic or lytic bone lesion. Multilevel degenerative changes spine. 2 mm anterolisthesis of C5 on C6, likely degenerative. VISUALIZED BRAIN/ORBITS: Unremarkable. LUNG APICES: Clear. OTHER: None. IMPRESSION: No acute findings in CT neck. Electronically signed by: Kizzy Overton MD 06/09/2024 06:28 AM. 06/10 02:10 Differential diagnosis: arthritis, Cervical Discogenic Pain Cervical Facet Syndrome sp4 Cervical Raiculopathy Cervical Spondylosis cervical strain. Data reviewed: vital signs, nurses notes, lab test result(s), radiologic studies, CT scan. Consideration of Admission/Observation Escalation of care including admission/observation considered. ED course: Patient improved. Stable for discharge home with p.o. as needed pain medication.. 06/09 01:38 Order name: CBC with Diff; Complete Time: 05:51 sp4 06/09 01:38 Order name: CMP; Complete Time: 05:51 sp4 06/09 01:38 Order name: CRP; Complete Time: 05:51 sp4 06/09 01:38 Order name: CK; Complete Time: 05:51 sp4 06/09 01:37 Order name: CT Soft Tissue Neck W/contr sp4 06/09 01:38 Order name: IV Saline Lock; Complete Time: 03: sp4 06/09 01:38 Order name: Labs collected and sent; Complete Time: 03: sp4 Administered Medications: 06/09 03:19 Drug: Ondansetron IVP 4 mg IVP once; over 2 minutes Route: IVP; Site: right forearm; dd2 03:34 Follow up: Response: No adverse reaction dd2 03:19 Drug: NS 0.9% IV 1000 ml IV at 1 bolus Per protocol; to be given as a bolus over 60 dd2 minutes Route: IV; Rate: 1 bolus; Site: right forearm; 04:19 Follow up: IV Status: Completed infusion; IV Intake: 1000ml dd2 03:19 Drug: Methocarbamol IVPB 1 grams IVPB once over 1 hrs; (mix in NS 100 mL) Route: IVPB; dd2 Infused Over: 1 hrs; Site: right forearm; 04:19 Follow up: IV Status: Completed infusion; IV Intake: 110ml dd2 03:20 Drug: TORadol - Ketorolac IVP 15 mg IVP once Route: IVP; Site: right forearm; dd2 03:35 Follow up: Response: No adverse reaction dd2 03:20 Drug: morphine IVP or IV 4 mg IVP once over 4 mins Route: IVP; Infused Over: 4 mins; dd2 Site: right forearm; 03:35 Follow up: Response: No adverse reaction dd2 06:58 Drug: traMADol PO 100 mg PO once Route: PO; dd2 06:58 Follow up: Response: Medication administered at discharge. dd2 06:58 Drug: Cyclobenzaprine PO 10 mg PO once Route: PO; dd2 06:58 Follow up: Response: Medication administered at discharge. dd2 Disposition Summary: 06/09/24 06:43 Discharge Ordered Problem: new sp4 Symptoms: have improved sp4 Condition: Fair sp4 Diagnosis - Acute right neck pain, Degenerative spinal arthritis, sp4 Followup: sp4 - With: Private Physician - When: 7 - 10 days - Reason: Recheck today's complaints Discharge Instructions: - Discharge Summary Sheet sp4 - Cervical Strain and Sprain [facility] sp4 Forms: - Patient Portal Instructions sp4 Prescriptions: - Tramadol 50 mg Oral tablet - take 1 tablet ORAL route every 8 hours as needed; 25 tablet; Refills: 0, sp4 Product Selection Permitted - methocarbamol 750 mg Oral tablet - take 2 tablets ORAL route every 8 hours for 2 days PRN muscle soreness; 60 sp4 tablet; Refills: 0, Product Selection Permitted Signatures: Dispatcher [employer] Kimberly Arboleda RN RN vc1 Horacio Wilhelm MD MD sp4 KRISTA MOORE RN RN dd2 Corrections: (The following items were deleted from the chart) 01:38 01:38 C-REACTIVE PROTEIN+C.LAB.BRZ ordered. EDMS EDMS 01:39 01:39 CREATINE PHOSPHOKINASE+C.LAB.BRZ ordered. EDMS EDMS
--- NOTE | 2024-06-09 06:43 | ER ---
Nurse's Notes [facility] Name: Jadiel Pedraza Age: 73 yrs Sex: Male : 1950 Arrival Date: 06/09/2024 Time: 00:50 Bed 3 Private MD: Diagnosis: Acute right neck pain, Degenerative spinal arthritis, Presentation: 06/09 01:00 Chief complaint: Patient states: PAIN IN THE BACK OF NECK WITH SPASMS TO THE RIGHT SIDE vc1 OF NECK TO RIGHT SHOULDER. 01:00 Coronavirus screen: Client denies travel out of the [place] in the last 14 days. At this vc1 time, the client does not indicate any symptoms associated with coronavirus-19. Ebola Screen: Patient negative for fever greater than or equal to 101.5 degrees Fahrenheit, and additional compatible Ebola Virus Disease symptoms Patient denies exposure to infectious person. Patient denies travel to an Ebola-affected area in the 21 days before illness onset. No symptoms or risks identified at this time. Initial Sepsis Screen: Does the patient meet any 2 criteria? No. Patient's initial sepsis screen is negative. Does the patient have a suspected source of infection? No. Patient's initial sepsis screen is negative. Risk Assessment: Do you want to hurt yourself or someone else? Patient reports no desire to harm self or others. Onset of symptoms was June 16, 2024. 01:00 Method Of Arrival: Ambulatory vc1 01:00 Acuity: PARKER 4 vc1 Historical: - Allergies: 01:00 Bactrim; vc1 - PMHx: 01:00 Diabetes mellitus; Hypercholesterolemia; COLLAPSED L5; COMPRESSED L4; vc1 - PSHx: 01:00 None; vc1 - Immunization history:: Adult Immunizations up to date, Flu vaccine is up to date. - Infectious Disease History:: Denies. - Social history:: Smoking status: Patient denies any tobacco usage or history of. - Family history:: not pertinent. Screenin: [facility] ED Fall Risk Assessment (Adult) History of falling in the last 3 months, vc1 including since admission No falls in past 3 months (0 pts) Confusion or Disorientation No (0 pts) Intoxicated or Sedated No (0 pts) Impaired Gait No (0 pts) Mobility Assist Device Used No (0 pt) Altered Elimination No (0 pt) Score/Fall Risk Level 0 - 2 = Low Risk Oriented to surroundings, Maintained a safe environment, Educated pt \T\ family on fall prevention, incl call for assistance when getting out of bed, Provided non-skid footwear. Abuse screen: Denies threats or abuse. Nutritional screening: No deficits noted. Tuberculosis screening: No symptoms or risk factors identified. Assessment: 02:45 Reassessment: ASSUMING PT CARE AT THIS TIME. PT PLACED IN ER 4. General: Appears in no dd2 apparent distress. uncomfortable, Behavior is calm, cooperative, appropriate for age. Pain: Complains of pain in scalp, posterior cervical area and right trapezius Pain does not radiate. Pain currently is 8 out of 10 on a pain scale. Quality of pain is described as aching, sharp, Pain began 2-3 days ago. Neuro: Level of Consciousness is awake, alert, obeys commands, Oriented to person, place, time, situation, Appropriate for age Vegetable Packer are equal bilaterally Moves all extremities. Gait is steady, Speech is normal, Facial symmetry appears normal, Pupils are PERRLA, Intact. Cardiovascular: JVD is absent Patient's skin is warm and dry. Respiratory: Airway is patent Respiratory effort is even, unlabored, Respiratory pattern is regular, symmetrical, Breath sounds are clear bilaterally. GI: No deficits noted. No signs and/or symptoms were reported involving the gastrointestinal system. Abdomen is flat, non-distended. : No deficits noted. No signs and/or symptoms were reported regarding the genitourinary system. EENT: No deficits noted. No signs and/or symptoms were reported regarding the EENT system. Derm: No deficits noted. No signs and/or symptoms reported regarding the dermatologic system. Musculoskeletal: Circulation, motion, and sensation intact. Range of motion: limited in NECK Tenderness present in scalp, posterior cervical area and right trapezius Reports pain in posterior cervical area and right trapezius since 2-3 DAYS AGO. Pain is 8 out of 10 on a pain scale. Vital Signs: 01:00 BP 144 / 69; Pulse 85; Resp 16; Temp 98.1; Pulse Ox 99% ; Weight 75.75 kg; Height 5 ft. vc1 7 in. ; Pain 10/10; 03:30 BP 132 / 63; Pulse 75; Resp 16; Pulse Ox 95% on R/A; dd2 04:15 BP 125 / 60; Pulse 70; Resp 16; Pulse Ox 96% on R/A; dd2 06:09 BP 114 / 57; Pulse 66; Resp 18; Pulse Ox 95% on R/A; kd3 01:00 Body Mass Index 26.16 (75.75 kg, 170.18 cm) vc1 01:00 Pain Scale: Adult vc1 [place] Coma Score: 02:45 Eye Response: spontaneous(4). Motor Response: obeys commands(6). Verbal Response: dd2 oriented(5). Total: 15. 03/21 02:09 Eye Response: spontaneous(4). Motor Response: obeys commands(6). Verbal Response: sp4 oriented(5). Total: 15. ED Course: 06/09 00:52 Patient arrived in ED. im 01:19 Triage completed. vc1 01:20 Horacio Wilhelm MD is Attending Physician. sp4 01:20 Arm band placed on right wrist. vc1 01:21 Patient has correct armband on for positive identification. vc1 02:45 Client placed on continuous cardiac and pulse oximetry monitoring. NIBP monitoring dd2 applied. Door closed. Noise minimized. Warm blanket given. Pillow given. Verbal reassurance given. 02:45 Patient maintains SpO2 saturation greater than 95% on room air. dd2 03:01 KRISTA MOORE, RN is Primary Nurse. dd2 03:02 No provider procedures requiring assistance completed. Initial lab(s) drawn, by me, dd2 sent to lab. Inserted saline lock: 20 gauge in right forearm, using aseptic technique. 04:25 CT Soft Tissue Neck W/contr In Process Unspecified. EDMS 06:58 Provided Education on: d/c education, medications and f/u. dd2 06:58 IV discontinued, intact, bleeding controlled, No redness/swelling at site. Pressure dd2 dressing applied. Administered Medications: 03:19 Drug: Ondansetron IVP 4 mg IVP once; over 2 minutes Route: IVP; Site: right forearm; dd2 03:34 Follow up: Response: No adverse reaction dd2 03:19 Drug: NS 0.9% IV 1000 ml IV at 1 bolus Per protocol; to be given as a bolus over 60 dd2 minutes Route: IV; Rate: 1 bolus; Site: right forearm; 04:19 Follow up: IV Status: Completed infusion; IV Intake: 1000ml dd2 03:19 Drug: Methocarbamol IVPB 1 grams IVPB once over 1 hrs; (mix in NS 100 mL) Route: IVPB; dd2 Infused Over: 1 hrs; Site: right forearm; 04:19 Follow up: IV Status: Completed infusion; IV Intake: 110ml dd2 03:20 Drug: TORadol - Ketorolac IVP 15 mg IVP once Route: IVP; Site: right forearm; dd2 03:35 Follow up: Response: No adverse reaction dd2 03:20 Drug: morphine IVP or IV 4 mg IVP once over 4 mins Route: IVP; Infused Over: 4 mins; dd2 Site: right forearm; 03:35 Follow up: Response: No adverse reaction dd2 06:58 Drug: traMADol PO 100 mg PO once Route: PO; dd2 06:58 Follow up: Response: Medication administered at discharge. dd2 06:58 Drug: Cyclobenzaprine PO 10 mg PO once Route: PO; dd2 06:58 Follow up: Response: Medication administered at discharge. dd2 Medication: 02:45 VIS not applicable for this client. dd2 Intake: 04:19 IV: 110ml; Total: 110ml. dd2 04:19 IV: 1000ml; Total: 1110ml. dd2 Outcome: 06:43 Discharge ordered by . sp4 06:58 Discharged to home ambulatory, dd2 06:58 Condition: improved 06:58 Discharge instructions given to patient, significant other, Instructed on discharge instructions, follow up and referral plans. medication usage, Demonstrated understanding of instructions, follow-up care, medications, Prescriptions given X 2, 06:59 Patient left the ED. dd2 Signatures: Dispatcher [employer] Magaly Barrow RN RN kd3 Kimberly Spangler RN RN 1 Horacio Wilhelm MD MD sp4 Jovita Beth DIANA RN RN dd2
[2024-06-09] MEDS ORDERED: CYCLOBENZAPRINE 10 MG TAB ONE (06:47)
[2024-06-09] MEDS ORDERED: TRAMADOL HCL 50 MG TAB ONE (06:47)
[2024-06-09 07:09] VITALS: TEMP 98.1
[2024-06-09 07:26] VITALS: BP 114/57; O2SAT 95
== END 2024-06-09 06:59 | disposition home or self-care (01) ==
LOC: ER 00:50
DX: M54.2 Cervicalgia (principal); M47.892 Other spondylosis, cervical region
CPT/HCPCS: 96365; 85025; 36415; 82550; 80053; 86140; 70491; 96375; 99284; Q9967; J2405; J2800; J7030